=== PATIENT | female | born 1980 | race American Indian/Alaskan Native ===

== ENCOUNTER 2019-10-29 07:13 | Emergency (ER) | payer OTHER ==
[2019-10-29 07:22] VITALS: BP 124/70
--- NOTE | 2019-10-29 07:25 | Emergency Department Report ---
ED Extremity Problem HPI - General Chief complaint: Extremity Injury, Lower Stated complaint: LEFT FOOT PAIN Time Seen by Provider: 10/29/19 07:19 Source: patient Mode of arrival: Ambulatory Limitations: No Limitations - History of Present Illness Initial comments: 38-year-old female who is an employee at [employer] presents to the hospital planing of right lateral foot pain times 3 days. She has sudden onset of pain while running on a treadmill and continue to run faster despite the pain. Pain has continued for the last 3 days and she is having difficulty bearing weight and unable to run since injury. Pain is radiating up her right ankle but greatest at the right lateral foot. No previous injury reported - Related Data Previous Rx's Medication Instructions Recorded Last Taken Type Ibuprofen [Motrin] 600 mg PO Q8H PRN #20 tablet 10/29/19 Unknown Rx Allergies Allergy/AdvReac Type Severity Reaction Status Date / Time Penicillins Allergy Hives Verified 10/29/19 07:22 ED Review of Systems ROS: Stated complaint: LEFT FOOT PAIN Other details as noted in HPI Comment: All other systems reviewed and negative ED Past Medical Hx - Past Medical History Previous Medical History?: No - Surgical History Past Surgical History?: Yes Additional Surgical History: Breast augmentation - Social History Smoking Status: Never Smoker Substance Use Type: None - Medications Home Medications: Home Medications Medication Instructions Recorded Confirmed Last Taken Type Ibuprofen [Motrin] 600 mg PO Q8H PRN #20 tablet 10/29/19 Unknown Rx ED Physical Exam - General Limitations: No Limitations - Other Other exam information: General: No acute distress Head: Atraumatic Eyes: normal appearance ENT: Moist mucous membranes Neck: Normal appearance, no midline tenderness Chest: Clear to auscultation bilaterally CV: Regular rate and rhythm Abdomen: Soft, nondistended Extremity: 2+ DP pulse. Tenderness along the right mid to posterior 5th metatarsal area. No tenderness to the malleoli, heel, or plantar fascia. No warmth or erythema. Able to bear partial weight Neuro: Alert O x 3, no facial asymmetry, speech clear, no gross motor sensory deficit Psych: Appropriate behavior Skin: No rash ED Course Vital Signs 10/29/19 10/29/19 07:19 07:47 Temperature 98.5 F Pulse Rate 76 Respiratory 16 16 Rate Blood Pressure 124/70 O2 Sat by Pulse 100 Oximetry ED Medical Decision Making - Radiology Data Radiology results: report reviewed RIGHT FOOT 3 VIEWS INDICATION: lateral foot pain. COMPARISON: None. IMPRESSION: No acute osseous or soft tissue abnormality. No significant DJD. - Medical Decision Making Right foot x-ray does not reveal fracture. Diagnosis right foot sprain. Alistair wrap and rest (low impact activities) will be encouraged Critical Care Time: No Critical care attestation.: If time is entered above; I have spent that time in minutes in the direct care of this critically ill patient, excluding procedure time. ED Disposition Clinical Impression: Right foot sprain Disposition: TO HOME OR SELFCARE Is pt being admited?: No Does the pt Need Aspirin: No Condition: Stable Instructions: Foot Sprain (ED) Additional Instructions: Take the medication as prescribed. Follow-up with your doctor or doctor/clinic provided. Return if symptoms worsen as indicated by your discharge instructions. Use the Alistair wrap as needed for extra support. Avoid high impact activities to allow time for your foot to heal. Follow-up with your primary care doctor and orthopedic doctor if symptoms continue Prescriptions: Ibuprofen [Motrin] 600 mg PO Q8H PRN #20 tablet PRN Reason: Pain Referrals: PRIMARY CARE, [Primary Care Provider] - 3-5 Days LETICIA CHILEDRS MD [Staff Physician] - 3-5 Days (Primary care doctor) LEE ANN YEE MD [Staff Physician] - 3-5 Days (Orthopedic doctor) Forms: Work/School Release Form(ED) Time of Disposition: 08:46
[2019-10-29] MEDS ORDERED: KETOROLAC 60 MG/2 ML INJ IM ONE (07:48)
--- NOTE | 2019-10-29 08:39 | XRay Report ---
RIGHT FOOT 3 VIEWS INDICATION: lateral foot pain. COMPARISON: None. IMPRESSION: No acute osseous or soft tissue abnormality. No significant DJD. Signer Name: Ashwin Gaytan Jr, MD Signed: 10/29/2019 8:34 AM Workstation Name: [id number]
== END 2019-10-29 08:49 | disposition home or self-care (01) ==
LOC: ED 07:13
DX: S93.601A Unspecified sprain of right foot, initial encounter (principal); Z79.1 Long term (current) use of non-steroidal anti-inflammatories (NSAID); Z88.0 Allergy status to penicillin; X50.9XXA Other and unspecified overexertion or strenuous movements or postures, initial encounter; Y93.89 Activity, other specified; Y92.89 Other specified places as the place of occurrence of the external cause; Y99.8 Other external cause status
CPT/HCPCS: 73630; 96372; 99283; J1885